=== PATIENT | female | born 1940 | race Caucasian/White ===

== ENCOUNTER 2018-10-06 13:19 | Inpatient (IN) | payer OTHER ==
[~2018-10-06] VITALS: Ht 160 cm; Wt 51.3 kg
[2018-10-06 13:19] VITALS: BP 108/61
[2018-10-06 13:40] LABS: HEMATOCRIT 34.8 % (37.0-47.0); HEMOGLOBIN 11.4 gm/dL (12.0-15.0); MCHC 32.8 g/dL (28.0-37.0); MCV 91.7 fL (80.0-100.0); PLATELET COUNT 359 thou/uL (150-400); RDW 14.4 % (10.5-14.5); WBC 8.1 thou/uL (4.0-11.0)
[2018-10-06 13:54] LABS: ALBUMIN 2.3 g/dL (3.4-5.0); CREATININE 0.7 mg/dL (0.6-1.0); POTASSIUM 3.1 mmol/L (3.5-5.1); TOTAL BILIRUBIN 0.3 mg/dL (<0.1-1.0); TOTAL PROTEIN 7.3 g/dL (6.4-8.2)
[2018-10-06 13:55] LABS: ABSOLUTE NEUTROPHILS 7.2 thou/uL (1.4-8.2); ANISOCYTOSIS 1+
[2018-10-06 13:59] LABS: CALCIUM 9.7 mg/dL (8.5-10.1)
[2018-10-06 14:53] LABS: URINE BILIRUBIN NEGATIVE (Negative); URINE BLOOD TRACE (Negative); URINE CLARITY CLEAR; URINE COLOR YELLOW; URINE GLUCOSE-RANDOM* NEGATIVE (Negative); URINE KETONES NEGATIVE (Negative); URINE LEUKOCYTES-REFLEX NEGATIVE (Negative); URINE NITRITE-REFLEX NEGATIVE (Negative); URINE PROTEIN (DIPSTICK) NEGATIVE (Negative); URINE UROBILINOGEN 0.2 E.U./dl (0.2-1.0)
[2018-10-06 17:36] VITALS: BP 111/66
[2018-10-06 18:20] VITALS: BP 92/53
--- NOTE | 2018-10-06 18:45 | NUR ---
PT ARRIVED AT 1830, A&0X4, WET, CHANGED HER GOWN AND BRIEF. TOOK VS AND CALLED ADMITTING/ER TO GET PT ON TO OUR FLOOR. VS ON BOARD WILL GIVE REPORT, PT SHOWS HOW TO USE THE CALL LIGHT. HAD SMALL BM, BLACK PER AIDE. WILL CONTINUE TO MONITOR. PT IS WATCHING TELEVISION, ASKING FOR A DINNER TRAY WILL REVIEW DIET AND GIVE COLD TRAY.CARDIAC MONITORED.
[2018-10-06 19:39] VITALS: BP 115/66
[2018-10-06 20:05] VITALS: BP 115/66
--- NOTE | 2018-10-06 20:46 | NUR ---
PT ADMITED TO FLOOR. ORDERS CARRIED OUT. PT ARRIVED ON DAY SHIFT. PT SIGNED CONSENT REGARDING TELEMETRY INTERFERENCE AND ALLOWED FOR QUESTIONS. WILL CONTINUE TO MONITOR ON TELE AND COMMUNICATED WITH MDs
[2018-10-06] MEDS ORDERED: FLORASTOR250 MG PO (21:46)
[2018-10-06] MEDS ORDERED: MAGOX 400400 MG PO (21:47)
[2018-10-06] MEDS ORDERED: LYRICA 75 MG CA75 MG PO (21:47)
[2018-10-06] MEDS ORDERED: LIPITOR 20 MG T20 M1 PO (21:48)
[2018-10-06] MEDS ORDERED: LIORESAL 10 MG10 MG PO (21:48)
[2018-10-06] MEDS ORDERED: UNICOMPLEX M TA1 TA1 PO (21:49)
[2018-10-06] MEDS ORDERED: COLACE100 MG PO (21:49)
[2018-10-06] MEDS ORDERED: CARDIZEM CD240 MG PO (21:50)
[2018-10-06] MEDS ORDERED: LEXAPRO20 MG PO (21:51)
[2018-10-06] MEDS ORDERED: LASIX 40 MG TAB40 M2 PO (21:52)
[2018-10-06] MEDS ORDERED: ALBUTEROL2.5 MG/31 INH (21:53)
[2018-10-06] MEDS ORDERED: LEVSIN0.125 MG PO (21:56)
[2018-10-06] MEDS ORDERED: MELATONIN5 M1 PO (21:56)
[2018-10-06] MEDS ORDERED: NITROGLYCERIN0.4 MG SUBLING (21:57)
[2018-10-06] MEDS ORDERED: ZAROXOLYN 5MG TA5 MG PO (21:57)
[2018-10-06] MEDS ORDERED: XARELTO15 MG PO (21:58)
[2018-10-06] MEDS ORDERED: MIRALAX17 G1 PO (21:59)
[2018-10-06] MEDS ORDERED: SENNA8.6 MG PO (22:01)
[2018-10-06] MEDS ORDERED: TYLENOL EXTRA500 MG PO (22:01)
[2018-10-06] MEDS ORDERED: VITAMIN D2000 UNIT PO (22:02)
[2018-10-06] MEDS ORDERED: PROAIR RESPICL90 MCG INH (22:04)
[2018-10-06] MEDS ORDERED: POTASSIUM20 PO (22:05)
[2018-10-06 23:08] LABS: HEMATOCRIT 31.1 % (37.0-47.0); HEMOGLOBIN 10.1 gm/dL (12.0-15.0)
[2018-10-07 00:10] VITALS: BP 113/69
[2018-10-07 04:38] LABS: CALCIUM 9.1 mg/dL (8.5-10.1); CREATININE 0.7 mg/dL (0.6-1.0); POTASSIUM 3.5 mmol/L (3.5-5.1)
[2018-10-07 04:40] LABS: HEMOGLOBIN 10.1 gm/dL (12.0-15.0); MCH 29.9 pg (26.0-34.0); MCHC 32.5 g/dL (28.0-37.0); MCV 91.9 fL (80.0-100.0); RBC 3.37 mil/uL (4.20-5.00); RDW 14.2 % (10.5-14.5); WBC 8.2 thou/uL (4.0-11.0)
--- NOTE | 2018-10-07 04:40 | NUR ---
PT RESTING IN HAS BEEN DROWSY MAJORITY OF SHIFT. PT AFIB ON MONITOR. PT HAS BEEN NPO SINCE MIDNIGHT FOR POSSIBLE COLONOSCOPY TODAY. PT LABS TO BE REVIEWED THIS MORNING. CONTINUES WITH PROTONIX GTT AND MAINTENANCE IVFs.
[2018-10-07 04:42] LABS: INR 1.1; PROTIME 11.3 Seconds (9.3-11.4)
[2018-10-07 04:45] VITALS: BP 111/60
[2018-10-07 07:59] VITALS: BP 105/61
--- NOTE | 2018-10-07 08:53 | NUR ---
ASSUMED CARE OF PT APPROX 0715, SHE IS A&0X4, AT TIMES FORGETFUL, IS NOT IMPULSIVE THUS FAR. HAS REMAINED NPO SINCE MIDNIGHT SHIFT PRIOR FOR ANY POSSIBLE DIAGNOSTICS, MOUTH SWABS PROVIDED, IVF RUNNING, USES CALL LIGHT PART OF THE TIME, WATCHING TELE ASKING FOR BFAST. WILL CONTINUE TO MONITOR, IS CARDIAC MONITORED, CHRONIC AFIB
--- NOTE | 2018-10-07 09:34 | NUR ---
RD consult received for poor intake. Pt admitted with possible GIB. Hx CVA, HTN, On IVF and IV protonix. NPO for possible colonoscopy today. Visit with pt;voiced good appetite-from francis lucio. States eats in dining ruby and always more than 50% of meals. Possible mild wt loss 3-5 lb from stated usual of 115 lb. Able to state food preferences and will communicate these to dietary once diet is advanced. Low nutrition risk
--- NOTE | 2018-10-07 13:27 | NUR ---
Case opened to follow for dc planing. 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. She moved there from [facility] in August this year. Her spouse is her dpoa and he is in the process of moving from [place] to be closer to the facility with family. She is normally up in a w/c at the facility. She has snf days available if needed at ok. [facility] is holding her bed. Spouse and children are here this afternoon visiting. DC plan is to return to the custodial when medically stable. EGD planed for tomorrow.
[2018-10-07 15:20] VITALS: BP 106/56
--- NOTE | 2018-10-07 15:52 | NUR ---
NIGHT STAFF TO GIVE THE FOLLOWING MEDS AT 0600 10/08/18: (WILL GIVE REPORT TONIGHT WELL): LYRICA, CARDIZEM, AND BACLOFEN
--- NOTE | 2018-10-07 15:56 | NUR ---
FAXED CLINICAL UPDATE TO [facility] LEFT MSG WITH RHETT IN ADM. WILL F/U WITH FACILITY ON WEDNESDAY.DCP TO FOLLOW.
[2018-10-07 20:15] VITALS: BP 121/59
[2018-10-08 04:16] VITALS: BP 99/57
--- NOTE | 2018-10-08 04:25 | NUR ---
RECEIVED PT'S CARE AT 1937; PT. ON BED; ALERT; AWAKE; DURING ASSESSMENT AOX4; C/O PAIN WHEN PUTTIN BED ON SEMI NORTON POSITION; C/O BACK PAIN; SCHEDULED MEDICATION GIVEN; C/O PAIN OVER LEGS WHEN ASSESSED FOR EDEMA; EXTERNAL FEMALE MYERS APPLIED; NPO AFTER MIDNIGHT; TURNED Q2H; ASSESSMENT CHARGED; FOLLOWING POC; MONITORING; WILL PASS ON REPORT.
[2018-10-08 05:32] LABS: ALBUMIN 1.9 g/dL (3.4-5.0); CALCIUM 8.8 mg/dL (8.5-10.1); CREATININE 0.6 mg/dL (0.6-1.0); TOTAL BILIRUBIN 0.6 mg/dL (<0.1-1.0); TOTAL PROTEIN 5.8 g/dL (6.4-8.2)
[2018-10-08 05:41] LABS: HEMATOCRIT 28.7 % (37.0-47.0); HEMOGLOBIN 9.2 gm/dL (12.0-15.0); MCH 29.5 pg (26.0-34.0); MCV 92.1 fL (80.0-100.0); RBC 3.12 mil/uL (4.20-5.00); RDW 14.2 % (10.5-14.5); WBC 8.1 thou/uL (4.0-11.0)
[2018-10-08 07:45] VITALS: BP 130/67
[2018-10-08 11:40] VITALS: BP 118/57
[2018-10-08 17:01] VITALS: BP 111/49
--- NOTE | 2018-10-08 18:36 | NUR ---
ASSESSMENT CHARTED, VSS, ALERT AND ORIENTED, PATIENT NPO FOR EGD, EXTERNAL FEMALE CATHETER PATENT. NO COMPLAINTS OF PAIN. WILL CONTINUE TO MONITOR
[2018-10-08 19:22] VITALS: BP 118/55
[2018-10-09 03:32] VITALS: BP 116/59
--- NOTE | 2018-10-09 04:54 | NUR ---
RECEIVED PT'S CARE AT 1935; PT. ON BED; RESTING; DURING ASSSESMENT PT. AOX4; DROWSY; HS SCHEDULED MEDICATION GIVEN; REQUESTED TO BE CHANGED; C/O PAIN WHEN CLEAN; REDNESS OVER BUTTOCKS; BARRIER CREAM APPLIED; EDUCATED ABOUT THE IMPORTANCE TO REPOSITION FROM SIDE TO SIDE DURING THE NIGTH; ST. UNDERSTANDING; PT. INCONTINENT; HAD 3 MEDIUM SOFT BROWN-BLACK STOOLS; NOT BAD ODOR; STOOL SOFTNER GIVEN EARLY ON THE NIGHT; TURN Q2H; ABLE TO REST THROUGH THE NIGHT WITH EYES CLOSED; ASSESSMENT CHARGED; FOLLOWING POC; MONITORING; WILL PASS ON REPORT;
[2018-10-09 05:48] LABS: CALCIUM 8.9 mg/dL (8.5-10.1); CREATININE 0.6 mg/dL (0.6-1.0); POTASSIUM 4.4 mmol/L (3.5-5.1)
[2018-10-09 05:52] LABS: HEMATOCRIT 27.5 % (37.0-47.0); HEMOGLOBIN 8.8 gm/dL (12.0-15.0); MCH 29.8 pg (26.0-34.0); MCHC 32.2 g/dL (28.0-37.0); MCV 92.4 fL (80.0-100.0); RBC 2.97 mil/uL (4.20-5.00); RDW 14.5 % (10.5-14.5); WBC 7.2 thou/uL (4.0-11.0)
[2018-10-09 06:57] VITALS: BP 111/49
--- NOTE | 2018-10-09 10:54 | NUR ---
1015-Hand off from EMILY Ayala. Pt is alert, oriented x 4 but forgettful about situation. Pt is on NC w/ 4L of oxygen. Pt had BM, Small, brownish. Pt did not realize that she had BM. Pt in on Regular diet. Siderails x 4. Items are within reach. Brownish discoloration on LE, makenzie around sewell. Abrasions on LL.
[2018-10-09 12:17] VITALS: BP 120/51
[2018-10-09 16:03] VITALS: BP 94/60
[2018-10-09 19:54] VITALS: BP 107/52
[2018-10-10 04:13] VITALS: BP 120/48
--- NOTE | 2018-10-10 05:15 | NUR ---
RECEIVED PT'S CARE AT 1940; PT. ON BED; RESTING; RESQUESTED EXTERNAL FOLLEY; EXPLAINED EXTERNAL FOLLEY WAS REMOVED DUE TO FREQUENT BMs; ST. UNDERSTANDING; FORGETFUL; NEEDS REINFORCEMENT; DURING ASSESSMENT SLEEP INTERRUPTED; COMPLETE BED CHANGED DUE TO VOIDING & URINE INCONTINENCE; HAD MORE THAN 3 BMs WHITIN 24H; ISOLATION PROTOCOL ORDERED; STOOL SENT TO LAB; DURING THE NIGHT PT. CHANGED & TURN FROM SIDE TO SIDE; ABLE TO REST THROUGH THE NIGHT WITH EYES CLOSED; ASSESSMENT CHARGED; FOLLOWING POC; MONITORING; WILL PASS ON REPORT.
[2018-10-10 05:20] LABS: HEMATOCRIT 31.6 % (37.0-47.0); HEMOGLOBIN 10.1 gm/dL (12.0-15.0); MCH 30.1 pg (26.0-34.0); MCHC 32.1 g/dL (28.0-37.0); PLATELET COUNT 340 thou/uL (150-400); RBC 3.36 mil/uL (4.20-5.00); WBC 6.8 thou/uL (4.0-11.0)
[2018-10-10 05:54] LABS: ABSOLUTE NEUTROPHILS 4.5 thou/uL (1.4-8.2); ATYPICAL LYMPHS 1 %
[2018-10-10 08:43] VITALS: BP 115/62
[2018-10-10] MEDS ORDERED: PANTOPRAZOLE SO40 M1 PO (10:48)
[2018-10-10] MEDS ORDERED: CARDIZEM CD120 MG PO (10:48)
[2018-10-10 11:14] VITALS: BP 101/57
--- NOTE | 2018-10-10 12:39 | NUR ---
ASSUMED CARE THIS AM. SLEEPING BUT AWAKES TO VOICE. NO COMPLAINTS OF PAIN UNLESS BEING MOVED.
--- NOTE | 2018-10-10 13:12 | NUR ---
PT DISCHARGING TODAY TO [facility] FAXED DC ORDERS/SUMMARY TO FACILITY SPOKE WITH RHETT IN ADM SHE RECEIVED DC ORDERS AND ARRANGED TRANSPORT VIA [facility] FOR [id number]. DCP LEFT MSG WITH PT'S OF DC AND TIME OF TRANSPORT. UNIT NOTIFIED AND CHART COPY PER US. RN TO CALL REPORT TO [phone].
--- NOTE | 2018-10-14 09:07 | PATH ---
[facility] [address] [place] [address] PATHOLOGY RPT PROCEDURE Name: KERRY MALDONADO Anai Room #: 217-P DIS IN M.R.#: [id number] ������������������ Admission: 10/06/18 ������������������ Date of : 42 Discharge: 10/10/18 Report #: [id number] Path Case #: [id number] [facility] Accession Number: [id number] . 01 Material submitted: . stomach - GASTRIC BX . 01 Clinical history: . Melena, gastric erosions, hiatal hernia, Davis's . 02 Diagnosis: "Gastric BX R/O H. pylori", biopsy: - Gastric antral-type mucosa with mild reactive/regenerative changes and mild chronic active gastritis, mild activity, and focal intestinal metaplasia. - Rare H. pylori organisms PRESENT by immunohistochemical stain (block A1); control reacted appropriately. - See comment. (MIRELLA:javier; 10/11/2018) QMS/10/11/2018 . 02 Comment: An additional immunohistochemical stain is pending and will be reported as an addendum. (CLW:javier; 10/11/2018) . 02 Addendum: . An additional properly controlled immunohistochemical stain is performed. . AE1/AE3 (block A1) - No abnormal staining . The final diagnosis remains unchanged. (CLW/db; 10/13/2018) . Professional services performed by [facility] at [address] [place] [address]. Technical services performed by [employer] at [address] [place] [address], [address] [address]. LBQ/10/13/2018 Addendum Electronically Signed by Cristela Young MD, Pathologist . 02 Electronically signed: . Cristela Young MD, Pathologist NPI- [id number] . 01 Gross description: . The specimen is received in formalin, labeled "Kerry Maldonado, gastric BX, rule out H. pylori", are two irregular fragments of vega soft tissue [address] [address] PATHOLOGY RPT PROCEDURE Name: KERRY MALDONADO Room #: 217-P DIS IN M.R.#: [id number] ������������������ Admission: 10/06/18 ������������������ Date of : 42 Discharge: 10/10/18 Report #: [id number] Path Case #: [id number] measuring 0.3 cm in greatest dimension each. Entirely submitted in A1. (SWS; 10/10/2018) SHS/SHS . 02 Pathologist provided ICD-10: K29.50, B96.81 . 02 CPT . 999970, U40323, D19561 Specimen Comment: A courtesy copy of this report has been sent to Specimen Comment: [phone], , . Specimen Comment: Report sent to ,DR GARCIA / DR TIPTON Performed at: [address], [place] [id number] MD Abdirahman Mosley MD Phone: [phone] Performed at: [address] [id number] MD Latha Cortez MD Phone: [phone]
== END 2018-10-10 14:09 | DRG 377 ==
LOC: ER 13:19 → 2N 14:55 → EROBS 14:55 → 2N 18:44
PROVIDERS: Internal Medicine Gastroenterology; Nurse Practitioner; Nurse Practitioner Family; ADMIT Hospitalist
PROC: 0DB68ZX Excision of Stomach, Via Natural or Artificial Opening Endoscopic, Diagnostic (ICD-10-PCS; principal; 2018-10-08)
DX: K25.4 Chronic or unspecified gastric ulcer with hemorrhage (principal); E43 Unspecified severe protein-calorie malnutrition; I69.354 Hemiplegia and hemiparesis following cerebral infarction affecting left non-dominant side; E87.6 Hypokalemia; J44.9 Chronic obstructive pulmonary disease, unspecified; F32.9 Major depressive disorder, single episode, unspecified; K22.70 Barrett's esophagus without dysplasia; K44.9 Diaphragmatic hernia without obstruction or gangrene; E83.42 Hypomagnesemia; R19.7 Diarrhea, unspecified; K20.9 Esophagitis, unspecified; K57.30 Diverticulosis of large intestine without perforation or abscess without bleeding; M62.838 Other muscle spasm; R06.89 Other abnormalities of breathing; I11.0 Hypertensive heart disease with heart failure; I48.91 Unspecified atrial fibrillation; Z79.899 Other long term (current) drug therapy; Z88.0 Allergy status to penicillin; Z88.8 Allergy status to other drugs, medicaments and biological substances; Z90.710 Acquired absence of both cervix and uterus; Z87.891 Personal history of nicotine dependence; Z68.20 Body mass index [BMI] 20.0-20.9, adult
CPT/HCPCS: 10081; 62110; 62900

== ENCOUNTER 2018-11-10 14:44 | Inpatient (IN) | payer OTHER ==
[~2018-11-10] VITALS: Ht 160 cm; Wt 54.5 kg
--- NOTE | ~2018-11-10 | EMS ---
[facility] [address] [place] [address] EMS Patient Care Report Name: YIFAN WALTON Room #: REG KAY Berger#: [id number] Admission: 11/10/18 Attend Phys: Discharge: Date of : 42 Report #: [id number] THIS REPORT FOR: //name// Report Transmitted: 11/10/2018 15:11 EMS Care Summary [facility] MED-ACT Incident [id number] @ 11/10/2018 14:10 Incident Location [address] [place] [address] Patient YIFAN WALTON Female, 78 Years 1940 Patient Address [address] [place] [address] Patient History Congestive Heart Failure (CHF),Chronic Obstructive Pulmonary Disease (COPD),Hypertension,Stroke/CVA, Patient Allergies Penicillin allergy, Patient Medications Atorvastatin, Nitroglycerin, Xarelto, Lyrica, Lexapro, Colace, Lasix, Diltiazem, Chief Complaint "I can't breathe." Disposition Transported No Lights/[place] Dispatch Reason Breathing Problem Transported To [facility] Narrative [id number] arrived to find the pt laying semi-bello in bed, in a tidy SNF room, in [facility] [address] [place] [address] EMS Patient Care Report Name: YIFAN WALTON Room #: REG KAY Berger#: [id number] Admission: 11/10/18 Attend Phys: Discharge: Date of : 42 Report #: [id number] the presence of two facility staff members. EMS noted that the pt was alert and interactive, anxious, distressed, with a wet cough. Facility staff members reported that they "didn't really know" the patient, had no pertinent medical history, no last known normal time. Facility staff members reported that the pt was found (at a time they couldn't specify) to be confused, hypotensive, febrile, and hypoxic "in the 70's" for her SPO2 on 2 lpm O2 via NC that she's on at all times for CHF and COPD, with wet lung sounds, prompting them to call 911. The pt reported that she was short of breath, but denied all other medical symptoms. The pt's condition improved from 77% SPO2 on 2lpm O2 via NC to 100% on high FiO2 via CPAP. Otherwise, the pt's condition remained unchanged during contact with EMS. Initial Vitals @14:26P: 61,R: 14,BP: 103/59,Pain: 0/10,GCS: 14,Glucose: 82,EtCO2: 13,SpO2: 88,Revised Trauma: 12, @14:41P: 58,R: 15,Pain: 0/10,GCS: 14,EtCO2: 18,SpO2: 100, @14:19P: 58,R: 10,Pain: 0/10,GCS: 14,EtCO2: 14,SpO2: 84,MT Suspected: false @14:36P: 58,R: 12,BP: 103/59,Pain: 0/10,GCS: 14,EtCO2: 16,SpO2: 90,Revised Trauma: 12, @14:17P: 61,R: 14,BP: 123/107,Pain: 0/10,GCS: 14,SpO2: 77,Revised Trauma: 12,MT Suspected: false Assessments @14:17MENTAL:Confused,SKIN:HEENT:Head/Face: No Abnormalities,Neck/Airway: No Abnormalities,LUNG SOUNDS:General: No Abnormalities,ABDOMEN:General: No Abnormalities,PELVIS//GI:No Abnormalities,EXTREMITIES:Left Arm: No Abnormalities,Right Arm: No Abnormalities,Left Leg: No Abnormalities,Right Leg: No Abnormalities,PULSE:NEURO:No Abnormalities, Impression Shortness of breath Procedures @PTAOxygen FlowRate: 2 Device: Nasal Cannula (NC) Response: UnchangedFailed@14:20CPAP Response: ImprovedSucceeded@14:31Saline Lock 10cc (22 ga) Site: Antecubital-RightResponse: UnchangedSucceeded@14:1912-Lead ECG Timeline QUALITY ASSURANCE ASSOCIATE,Oxygen FlowRate: 2 Device: Nasal Cannula (NC) Response: UnchangedFailed, 14:09,Call Received 14:09,Psap Call 14:10,Dispatched 14:11,En Route [address] [address] EMS Patient Care Report Name: YIFAN WALTON Anai Room #: REG KAY Berger#: [id number] Admission: 11/10/18 Attend Phys: Discharge: Date of : 42 Report #: [id number] 14:14,On Scene 14:16,At Patient 14:17,BP: 123/107 M,PULSE: 61,RR: 14 R,SPO2: 77 Ox,ETCO2: ,BG: ,PAIN: 0,GCS: 14, 14:19,12-Lead ECG, 14:19,BP: / M,PULSE: 58,RR: 10 R,SPO2: 84 Ox,ETCO2: 14 ,BG: ,PAIN: 0,GCS: 14, 14:20,CPAP Response: ImprovedSucceeded, 14:26,BP: 103/59 M,PULSE: 61,RR: 14 R,SPO2: 88 Ox,ETCO2: 13 ,B,PAIN: 0,GCS: 14, 14:29,Depart Scene 14:31,Saline Lock 10cc 22 ga Site: Antecubital-Right,Response: UnchangedSucceeded, 14:36,BP: 103/59 M,PULSE: 58,RR: 12 R,SPO2: 90 Ox,ETCO2: 16 ,BG: ,PAIN: 0,GCS: 14, 14:39,At Destination 14:41,BP: / M,PULSE: 58,RR: 15 R,SPO2: 100 Ox,ETCO2: 18 ,BG: ,PAIN: 0,GCS: 14, 15:02,Call Closed Disclaimer v1.1 Copyright 2019 [employer] This EMS Care Summary contains data elements from the applicable legal record (which may be displayed differently). It is designed to provide pertinent information for the following purposes: continuity of care, clinical quality, and state data reporting. The complete legal record is available to ED staff and administrators of the receiving hospital in [employer] Patient Tracker. All data is provided "as is."
[~2018-11-10 14:44] MED LIST: ALBUTEROL2.5 MG/31 INH; CARDIZEM CD120 MG PO; CARDIZEM CD240 MG PO; COLACE100 MG PO; FLORASTOR250 MG PO; LASIX 40 MG TAB40 M2 PO; LEVSIN0.125 MG PO; LEXAPRO20 MG PO; LIORESAL 10 MG10 MG PO; LIPITOR 20 MG T20 M1 PO; LYRICA 75 MG CA75 MG PO; MAGOX 400400 MG PO; MELATONIN5 M1 PO; MIRALAX17 G1 PO; NITROGLYCERIN0.4 MG SUBLING; PANTOPRAZOLE SO40 M1 PO; POTASSIUM20 PO; PROAIR RESPICL90 MCG INH; SENNA8.6 MG PO; TYLENOL EXTRA500 MG PO; UNICOMPLEX M TA1 TA1 PO; VITAMIN D2000 UNIT PO; XARELTO15 MG PO; ZAROXOLYN 5MG TA5 MG PO
[2018-11-10 14:45] VITALS: BP 101/47
[2018-11-10 15:14] LABS: BE(vivo) 3.1 mmol/L (-2 to +3); HCO3 28.1 mmol/L (22.0-26.0); PO2 65.2 mmHg (80.0-100.0); pH 7.414 (7.360-7.450)
[2018-11-10 15:31] LABS: ABSOLUTE NEUTROPHILS 6.5 thou/uL (1.4-8.2); BASOPHILS 1.4 % (0.0-2.0); EOSINOPHILS 2.7 % (0.0-3.0); HEMATOCRIT 33.2 % (37.0-47.0); HEMOGLOBIN 10.4 gm/dL (12.0-15.0); LYMPHOCYTES 10.4 % (24.0-44.0); MCH 27.5 pg (26.0-34.0); MCHC 31.1 g/dL (28.0-37.0); MCV 88.3 fL (80.0-100.0); MONOCYTES 10.4 % (1.0-8.0); PLATELET COUNT 301 thou/uL (150-400); POLYS 75.1 % (36.0-66.0); RBC 3.77 mil/uL (4.20-5.00); WBC 8.6 thou/uL (4.0-11.0)
[2018-11-10 15:38] LABS: ANION GAP 4 mmol/L (7-16); BUN 8 mg/dL (7-18); CALCIUM 8.9 mg/dL (8.5-10.1); CHLORIDE 107 mmol/L (98-107); CO2 32 mmol/L (21-32); CREATININE 0.8 mg/dL (0.6-1.0); GLUCOSE 96 mg/dL (74-106); POTASSIUM 3.7 mmol/L (3.5-5.1); SODIUM 143 mmol/L (136-145)
[2018-11-10 15:46] LABS: APTT 28.4 Seconds (24.5-32.8); PROTIME 10.8 Seconds (9.3-11.4)
[2018-11-10 15:49] LABS: ALBUMIN 2.1 g/dL (3.4-5.0); SGOT 24 U/L (15-37); SGPT 10 U/L (30-65); TOTAL BILIRUBIN 0.5 mg/dL (<0.1-1.0); TOTAL PROTEIN 6.6 g/dL (6.4-8.2); TROPONIN-I <0.06 ng/mL (<0.06)
[2018-11-10 16:51] LABS: TSH 1.357 uIU/mL (0.358-3.740)
[2018-11-10 17:03] LABS: URINE BILIRUBIN NEGATIVE (Negative); URINE BLOOD NEGATIVE (Negative); URINE CLARITY CLEAR; URINE COLOR YELLOW; URINE GLUCOSE-RANDOM* NEGATIVE (Negative); URINE KETONES NEGATIVE (Negative); URINE LEUKOCYTES-REFLEX 1+ (Negative); URINE NITRITE-REFLEX NEGATIVE (Negative); URINE PROTEIN (DIPSTICK) NEGATIVE (Negative); URINE SPECIFIC GRAVITY 1.015 (1.005-1.035)
[2018-11-10 17:11] LABS: AMP/METHAMP Negative (Negative); BARBITURATES Negative (Negative); BENZODIAZEPINES Negative (Negative); COCAINE Negative (Negative); METHADONE Negative (Negative); OPIATES Negative (Negative); PCP Negative (Negative)
[2018-11-10 17:15] LABS: BACTERIA-REFLEX None Seen /HPF (None Seen); CASTS None Seen /LPF (None Seen); CRYSTALS None Seen /LPF (None Seen); SQUAMOUS 4-10 Moderate /LPF (0-3); URINE RBC 0-2 Rare /HPF (0-2); WBC CLUMPS Few (None Seen)
[2018-11-10 17:40] VITALS: BP 117/59
[2018-11-10] MEDS ORDERED: LEXAPRO20 MG PO (17:51)
[2018-11-10] MEDS ORDERED: BUSPIRONE HCL10 MG PO (17:52)
[2018-11-10 19:11] VITALS: BP 119/65
[2018-11-10 19:50] VITALS: BP 117/62
[2018-11-10 20:04] VITALS: BP 117/62
[2018-11-10 23:53] VITALS: BP 119/60
[2018-11-11] MEDS ORDERED: IPRATROPIU0.2 MG/1 M INH (00:52)
[2018-11-11] MEDS ORDERED: IRON325 PO (01:00)
[2018-11-11 03:47] VITALS: BP 123/78
--- NOTE | 2018-11-11 05:15 | NUR ---
Arrived on the floor around 1944 on a BIPAP at 30%. RT suctioned x1 then pt. woke up. O2 at 4L around 2129.Able to state her name and she's at [facility] but does not remember date and why she's here. 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 A fib with controlled rate per monitor. SCD's on for DVT prophylaxis. Incontinent of bladder and had small bm. Buttocks excoriated , protective barrier cream applied after cleaning up. Pt. moaning in pain after each incontinence. Lezama cath inserted without difficulty for accurate I/O and due to wounds on buttock. She has been repositioned for comfort. Will continue to monitor.
[2018-11-11 05:34] LABS: HEMATOCRIT 33.3 % (37.0-47.0); HEMOGLOBIN 10.4 gm/dL (12.0-15.0); MCH 27.7 pg (26.0-34.0); MCHC 31.2 g/dL (28.0-37.0); MCV 88.7 fL (80.0-100.0); RBC 3.75 mil/uL (4.20-5.00); RDW 18.8 % (10.5-14.5); WBC 4.7 thou/uL (4.0-11.0)
[2018-11-11 05:43] LABS: ANION GAP 12 mmol/L (7-16); BUN 12 mg/dL (7-18); CHLORIDE 107 mmol/L (98-107); CO2 24 mmol/L (21-32); CREATININE 0.8 mg/dL (0.6-1.0); GLUCOSE 166 mg/dL (74-106); POTASSIUM 3.8 mmol/L (3.5-5.1); SODIUM 143 mmol/L (136-145)
[2018-11-11 05:52] LABS: ALBUMIN 2.1 g/dL (3.4-5.0); PHOSPHORUS 4.5 mg/dL (2.5-4.9); TROPONIN-I <0.06 ng/mL (<0.06)
[2018-11-11 07:42] VITALS: BP 125/71
--- NOTE | 2018-11-11 10:24 | NUR ---
WOUND CARE CONSULT; PERIRECTAL ESCORIATION WAS IDENTIFIED. RECOMMENDATION; ZGUARD AFTER EACH INCONTINENT EPISODE. WE WILL ALSO ADD A LOW AIRLOSS PUMP. DISCUSSED WITH EMILY
--- NOTE | 2018-11-11 10:46 | NUR ---
RD consult received for wound: wound care has assessed and pt with perirectal excoriation, no pressure ulcer identified. Tolerates regular diet with usually good appetite. Admit with COPD and hypoxia. Wt up 5 lb from usual and requires lasix. Low nutrition risk at this time
--- NOTE | 2018-11-11 11:17 | 2DMMODE ---
[facility] [address] [place] [address] 2 D/M-MODE ECHOCARDIOGRAM Name: ISABELLEYIFAN Anai Room #: 361-P ADM IN ..#: [id number] Admission: 11/10/18 Attend Phys: Vj Bravo Discharge: Date of : 42 Date of Service: 11/11/18 1117 Report #: [id number] THIS REPORT FOR: //name// APPROVED REPORT Study performed: 11/11/2018 09:45:30 EXAM: Comprehensive 2D, Doppler, and color-flow Echocardiogram Patient Location: Bedside Room #: [facility] Status: routine BSA: 1.56 HR: 91 bpm BP: 125/71 mmHg Rhythm: Atrial Fibrillation Other Information Study Quality: Good Indications Congestive Heart Failure COPD Atrial Fibrillation Dyspnea Hypertension/HDD 2D Dimensions RVDd: 42.16 mm IVSd: 9.58 (7-11mm) LVOT Diam: 18.46 (18-24mm) LVDd: 43.64 mm PWd: 10.09 (7-11mm) Ascending Ao: 35.31 (22-36mm) LVDs: 29.85 (25-40mm) Aortic Root: 30.10 mm IVC: 22.00 mm Volumes Left Atrial Volume (Systole) Single Plane 4CH: 76.08 mL Single Plane 2CH: 87.54 mL LA ESV Index: 61.00 mL/m2 Aortic Valve AoV Peak Michael.: 1.44 m/s AO Peak Gr.: 8.30 mmHg LVOT Max P.86 mmHg LVOT Max V: 0.85 m/s DAVE Vmax: 1.[address] [facility] [address] [place] [address] 2 D/M-MODE ECHOCARDIOGRAM Name: YIFAN WALTON Anai Room #: 361-P [facility] IN ..#: [id number] Admission: 11/10/18 Attend Phys: Vj rBavo Discharge: Date of : 42 Date of Service: 11/11/18 1117 Report #: [id number] Pulmonary Valve PV Peak Michael.: 1.15 m/s PV Peak Gr.: 5.31 mmHg Tricuspid Valve TR Peak Michael.: 3.94 m/s TR Peak Gr.: 62.20 mmHg PA Pressure: 72.00 mmHg Left Ventricle The left ventricle is normal size. There is normal LV segmental wall motion. There is normal left ventricular wall thickness. The left ventricular systolic function is normal. The left ventricular ejection fraction is within the normal range. LVEF is 55-60%. This study is not technically sufficient to allow evaluation of the LV diastolic function due to atrial fibrillation. Right Ventricle Right ventricle is at the upper limits of normal. The right ventricular systolic function is normal. Atria Left atrium is dilated. Right atrium is dilated. Aortic Valve The aortic valve is normal in structure. Mild aortic regurgitation. There is no aortic valvular stenosis. Mitral Valve The mitral valve is normal in structure. Mild mitral regurgitation. No evidence of mitral valve stenosis. Tricuspid Valve The tricuspid valve is normal in structure. There is moderate tricuspid regurgitation. Estimated PAP 72 mmHg. There is severe pulmonary hypertension. Pulmonic Valve The pulmonary valve is normal in structure. Trace pulmonic regurgitation. Great Vessels The aortic root is normal in size. IVC is dilated and collapses >50% with inspiration. Pericardium There is no pericardial effusion. [facility] [address] [place] [address] 2 D/M-MODE ECHOCARDIOGRAM Name: YIFAN WALTON Room #: 361-P [facility] IN M.R.#: [id number] Admission: 11/10/18 Attend Phys: Vj Bravo Discharge: Date of : 42 Date of Service: 11/11/181116 Report #: [id number] <Conclusion> The left ventricle is normal size. There is normal left ventricular wall thickness. The left ventricular systolic function is normal. Right ventricle is at the upper limits of normal. Left atrium is dilated. Right atrium is dilated. Mild aortic regurgitation. Mild mitral regurgitation. There is moderate tricuspid regurgitation. Estimated PAP 72 mmHg. There is severe pulmonary hypertension. <ELECTRONICALLY SIGNED> By: Hakeem Andino MD 11/11/18 1117 16 1117 Hakeem Andino MD /INF
[2018-11-11 11:35] VITALS: BP 139/71
--- NOTE | 2018-11-11 14:08 | EKG ---
[address] [place] [address] ELECTROCARDIOGRAM REPORT Name: YIFAN WALTON Room #: 361-P ADM IN M.R.#: [id number] Admission: 11/10/18 Attend Phys: Vj Shukla Discharge: Date of : 42 Report #: [id number] THIS REPORT FOR: //name// [facility] ED Test Date: 2018-11-10 Test Time: 18:05:04 Pat Name: YIFAN WALTON Department: Room: 361 Gender: F Bath Steward: roxanne : 1940 Requested By: Travis Gregorio Order Number: [id number] MD: Alfonso William Measurements Intervals Damar Rate: 77 P: SC: QRS: 113 QRSD: 92 T: 76 QT: 583 QTc: 661 Interpretive Statements Atrial fibrillation Left posterior fascicular block Abnormal R-wave progression, late transition Nonspecific T abnormalities, lateral leads Prolonged QT interval Compared to ECG 12/16/1994 06:11:00 Left posterior fascicular block now present Sinus rhythm no longer present T wave abnormality is less pronounced QT interval has shortened Electronically Signed On 11-11-2018 14:08:47 CDT by Alfonso William [email or web address] <ELECTRONICALLY SIGNED> By: Alfonso William MD, [facility] 11/11/18 1408 180 180 Alfonso William MD, FAC /EPI
--- NOTE | 2018-11-11 14:12 | NUR ---
INITIAL ASSESSMENT: Received consult as pt is from a nursing facility. BRENNAN reviewed chart and spoke with nursing and attending physician. Pt was admitted from [facility] due to COPD exacerbation. Pt may be ready for discharge back to [facility] over the weekend. BRENNAN spoke with pt's spouse, Federico, via phone to provide update and notify of possible weekend discharge. Pt's spouse will be to [facility] to see pt tomorrow and is agreeable with pt to d/c if ready over the weekend. Pt's spouse will need to be called when pt is discharged. inventory planner to send info to [facility] for review and notify of weekend discharge. Chart will need to be copied. BRENNAN is available to assist as needed with discharge planning. [facility]IL[facility]--
--- NOTE | 2018-11-11 14:17 | NUR ---
DISCHARGE PLANNING. ANTICIPATED DISCHARGE OVER THE WEEKEND. CLINICAL INFORMATION FAXED TO [facility] ADMISSIONS. PATIENT RESIDES AT [facility] HALFWAY CARE UNIT. IF DISCHARGE ORDERS COMPLETED PLEASE CALL [facility]. CONTACT NUMBER IS [phone] PLEASE CALL AND ASK FOR MARK UP DESIGNER ADMISSIONS/ANTIQUE COLLECTOR. PLEASE FAX ORDERS TO [phone]. THANK YOU.
[2018-11-11 19:09] VITALS: BP 131/80
--- NOTE | 2018-11-11 19:42 | NUR ---
pt is A&O X2 ( person and place), pt is confused sometimes, pt is contiuning o2 4l/min/nc, pt's vs and o2sat are stable , RN has reported DR about pt positive for PE, new order received, RN WILL report to next shift to keep eye on pt.
[2018-11-12 04:10] VITALS: BP 147/79
--- NOTE | 2018-11-12 04:44 | NUR ---
Received pt. on 4L/NC which is her baseline. She slept most of the night with BIPAP on at 30% FIO2. Shortness of breath with exertion. Able to answer orientation questions but forgetful at times.She has been repositioned for comfort. Z guard applied to buttocks. Pt. only in pain when being turned otherwise she denies need for pain med. Making progress towards care plan goals.
[2018-11-12 07:36] VITALS: BP 176/94
[2018-11-12 11:15] VITALS: BP 148/86
[2018-11-12 16:14] VITALS: BP 138/70
--- NOTE | 2018-11-12 17:49 | NUR ---
PT is A&OX2 ( person and place), pt is confused sometimes, pt can follow commands, pt is on o2 4 L/MIN/NC, PT'S VS and o2sat are stable at this time, pt's Brumfield catheter has d/c about 1500pm, pt has urinated after removing brumfield, pt has slowly meeting care plan goals.
[2018-11-12 19:35] VITALS: BP 146/74
[2018-11-13] VITALS (9 sets, daily range): BP systolic 143–188; BP diastolic 73–97
--- NOTE | 2018-11-13 03:52 | NUR ---
Pt. able to answer orientation questions though very forgetful at times and needs reorientation. O2 at 3L/NC while awake then had BIPAP on for a very short period of time. She has been repositioned for comfort. Medicated for pain with some relief. Incontinent of bladder. Z guard applied to perirectal area after each incontinence. Bed alarm on for safety. Making progress towards care plan goals.
[2018-11-13 04:53] LABS: HEMATOCRIT 32.7 % (37.0-47.0); HEMOGLOBIN 10.2 gm/dL (12.0-15.0); MCH 27.4 pg (26.0-34.0); MCHC 31.2 g/dL (28.0-37.0); MCV 87.9 fL (80.0-100.0); RBC 3.72 mil/uL (4.20-5.00); RDW 18.5 % (10.5-14.5); WBC 9.8 thou/uL (4.0-11.0)
--- NOTE | 2018-11-13 11:52 | NUR ---
pt's assessment has done, pt is A&OX3 , PT is forgetful, RN has reported to DR about pt had chest pain , pt had nitroglycerin SL 0.4mg q5hr x3 dose at 0740am-0750am, after 3 dose , pt's denies chest pain , pt is continuing o2 3L/MIN/NC, PT'S VS and O2SAT are stable at this time, pt needs help ADL and change position q2hr, pt has slowly meeting care plan goals.
[2018-11-14 03:42] VITALS: BP 160/89
--- NOTE | 2018-11-14 05:38 | NUR ---
ASSUMED CARE AT 1900. PT A&Ox2-3, FORGETFUL, SOMETIMES CALLS OUT FOR HELP BUT THEN WON'T SAY WHAT SHE NEEDS ONCE STAFF IS IN THE ROOM. DENIES SOB OR NAUSEA. MAINTAINING O2 SATS MID TO HIGH 90'S ON 3L O2; OCCASIONALLY PT WILL TAKE HER NC OFF; SHE DESATS TO LOW 80'S QUICKLY, BUT RECOVERS ONCE O2 IS BACK ON. C/O PAIN WHEN MOVED OR WHEN ARMS ARE TOUCHED, BUT DENIES CHEST OR ABD PAIN; GIVEN PAIN MEDS ONCE OVERNIGHT. FREQ INCONT OF URINE, DOESN'T CALL OUT TO ASK FOR BEDPAN BUT WILL CALL AND SAY SHE IS WET. HAS BEEN AFIB WITH HR IN 60'S ON TELE. NO OTHER CONCERNS, WILL CONTINUE TO MONITOR.
[2018-11-14 07:36] VITALS: BP 159/95
[2018-11-14] MEDS ORDERED: ELIQUIS5 M1 PO (10:04)
--- NOTE | 2018-11-14 11:26 | NUR ---
WOUND CARE FOLLOW UP; THE AVA-RECTAL AREA IS 95% BETTER. RECOMMENDATIONS; CONTINUE ZGUARD. WOUND CARE WILL SIGN OFF. RN PRESENT
[2018-11-14 11:39] VITALS: BP 152/92
--- NOTE | 2018-11-14 12:20 | NUR ---
DISCHARGE NOTE: SW reviewed chart and spoke with nursing and attending physician. Pt is medically stable to return to [facility] today. senior planner to coordinate and notify family. No additional SW needs identified at this time, but is available to assist should needs arise.
--- NOTE | 2018-11-14 12:40 | NUR ---
pt's assessment has done,pt is A&O X3, but pt is forgetful, pt is continuing o2 3L/min/nc, PT'S vs and o2sat are stable, pt needs help ADL and change position, pt's buttock redness has improved, Pt will d/c to NH AT 1PM, RN has giving report to NH ,pt has BM after fleet Enema x 1 time.
--- NOTE | 2018-11-14 13:46 | NUR ---
PT'S PIV has removed, pt D/C to NH at 1310pm.
== END 2018-11-14 13:36 | DRG 175 ==
LOC: ER 14:44 → EROBS 16:22 → 3W 16:22
PROVIDERS: Emergency Medicine; ADMIT Hospitalist
PROC: 5A09357 Assistance with Respiratory Ventilation, Less than 24 Consecutive Hours, Continuous Positive Airway Pressure (ICD-10-PCS; principal; 2018-11-10)
PROC: 5A09357 Assistance with Respiratory Ventilation, Less than 24 Consecutive Hours, Continuous Positive Airway Pressure (ICD-10-PCS; 2018-11-11)
PROC: 5A09357 Assistance with Respiratory Ventilation, Less than 24 Consecutive Hours, Continuous Positive Airway Pressure (ICD-10-PCS; 2018-11-12)
PROC: 5A09357 Assistance with Respiratory Ventilation, Less than 24 Consecutive Hours, Continuous Positive Airway Pressure (ICD-10-PCS; 2018-11-13)
PROC: 5A09357 Assistance with Respiratory Ventilation, Less than 24 Consecutive Hours, Continuous Positive Airway Pressure (ICD-10-PCS; 2018-11-14)
DX: I26.09 Other pulmonary embolism with acute cor pulmonale (principal); J96.01 Acute respiratory failure with hypoxia; I82.432 Acute embolism and thrombosis of left popliteal vein; E46 Unspecified protein-calorie malnutrition; I69.354 Hemiplegia and hemiparesis following cerebral infarction affecting left non-dominant side; K21.9 Gastro-esophageal reflux disease without esophagitis; I48.91 Unspecified atrial fibrillation; F03.90 Unspecified dementia, unspecified severity, without behavioral disturbance, psychotic disturbance, mood disturbance, and anxiety; I50.9 Heart failure, unspecified; J43.9 Emphysema, unspecified; F41.9 Anxiety disorder, unspecified; E88.09 Other disorders of plasma-protein metabolism, not elsewhere classified; I27.20 Pulmonary hypertension, unspecified; I11.0 Hypertensive heart disease with heart failure; Z79.899 Other long term (current) drug therapy; Z88.0 Allergy status to penicillin; Z88.5 Allergy status to narcotic agent; Z90.710 Acquired absence of both cervix and uterus; Z87.19 Personal history of other diseases of the digestive system; Z79.51 Long term (current) use of inhaled steroids
CPT/HCPCS: 10080